=== PATIENT | male | born 1965 | race American Indian/Alaskan Native ===

== ENCOUNTER 2018-04-29 15:17 | Inpatient (IN) | payer SELFPAY ==
[2018-04-29 15:30] VITALS: O2SAT 99
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
--- NOTE | 2018-04-29 16:31 | RAD ---
Date of service: 04/29/2018 HISTORY: chest pain COMPARISON: None TECHNIQUE: Chest PA and lateral FINDINGS: LUNGS: Minor bibasilar atelectasis PLEURA: No significant pleural effusion identified. No pneumothorax apparent. CARDIOVASCULAR: Normal. OSSEOUS STRUCTURES: No significant abnormalities. VISUALIZED UPPER ABDOMEN: Normal. OTHER FINDINGS: None. IMPRESSION: Minor bibasilar atelectasis
[2018-04-29 17:10] LABS: BASO # 0.1 K/uL (0.0-0.2); BASO % 1.2 % (0.0-2.0); EOS # 0.2 K/uL (0.0-0.7); EOS % 2.1 % (0.0-4.0); HEMOGLOBIN 13.7 g/dL (12.0-18.0); LYMPH # 1.6 K/uL (1.0-4.3); LYMPH % 19.6 % (20.0-40.0); MEAN CORPUSCULAR HEMOGLOBIN 24.4 pg (27.0-31.0); MEAN CORPUSCULAR HGB CONC 32.1 g/dL (33.0-37.0); MEAN PLATELET VOLUME 10.1 fl (7.2-11.7); MONO # 0.7 K/uL (0.0-0.8); MONO % 8.5 % (0.0-10.0); NEUT # 5.6 K/uL (1.8-7.0); NEUT % 68.6 % (50.0-75.0); NRBC % 0.1 % (0.0-0.0); RBC 5.62 Mil/uL (4.40-5.90); RED CELL DISTRIBUTION WIDTH 17.3 % (11.5-14.5); WHITE BLOOD COUNT 8.1 K/uL (4.8-10.8)
[2018-04-29 17:19] LABS: ACETAMINOPHEN < 10.0 ug/ml (10.0-30.0); SALICYLATE < 1.0 mg/dl
[2018-04-29 17:26] LABS: INR 1.1; PROTHROMBIN TIME 12.1 Seconds (9.8-13.1)
[2018-04-29 17:29] LABS: PARTIAL THROMBOPLASTIN TIME 37.5 Seconds (25.6-37.1)
[2018-04-29 17:38] LABS: ALB/GLOB RATIO 1.3 (1.0-2.1); ALBUMIN 4.2 g/dL (3.5-5.0); ALT/SGPT 49 U/L (21-72); AST/SGOT 28 U/L (17-59); BLOOD UREA NITROGEN 21 mg/dl (9-20); CALCIUM 9.3 mg/dL (8.4-10.2); GFR NON-AFRICAN AMERICAN > 60
[2018-04-29] MEDS ORDERED: DiphenhydrAMINE 50 mg/ml Inj IM PRN (22:12)
[2018-04-29] MEDS ORDERED: Magnesium Hydroxide Susp 30 ml UD PO PRN (22:12)
[2018-04-29] MEDS ORDERED: Alum-Mag Hydrox-Simethicone Susp (30 mL) PO PRN (22:12)
--- NOTE | 2018-04-29 22:29 | PCM.BM ---
<Edwin Mcdermott - Last Filed: 04/29/18 22:26> Treatment Plan Problems - Problems identified on initial assessmt Medication nonadherence Date Initiated: 04/29/18 Time Initiated: : Assessment reference: NA Status: Active Priority: 1 Feeling of Worthlessness Date Initiated: 04/29/18 Time Initiated: 22:27 Assessment reference: NA Status: Active Priority: 2 Hoplessness/Helplessness Date Initiated: 04/29/18 Time Initiated: 22:29 Assessment reference: NA Status: Active Priority: 3 Altered Sleep Pattern Date Initiated: 04/29/18 Time Initiated: 22:29 Status: Active Priority: 4 Treatment assets and liabiliti Patient Assests: adapts well, cooperative, self-reliant, ADL independent, negotiates basic needs Patient Liabilities: poor support system - Milieu Protocol Maintain good personal hygiene: daily Encourage regular showers, daily Remind patient to perform daily oral care, daily Assist patient to perform ADL's Maintain personal safety: every shift Educate patient to report safety concerns to staff, every shift Monitor environment for contraband/sharps Medication safety: Monitor for expected outcome, potential side effects: every shift, Assess barriers to learning: every shift, Assess readiness for medication education: every shift <Ilene Paz - Last Filed: 04/30/18 11:21> - Diagnosis (1) Major depressive disorder Status: Acute Interventions: Medication management, Individual and group therapy, Psychoeducation 04/30/18 11:21 (2) Generalized anxiety disorder with panic attacks Status: Acute Interventions: Medication management, Individual and group therapy, Psychoeducation 04/30/18 11:21 <Anna Lopez - Last Filed: 05/04/18 14:39> Family Contact Family involvement: Patient does not wish Family/SO involvement - Goals for Treatment Patient goals for treatment: Pt to be encouraged to attend activity and clinical groups 3-5x per week to identify at least 2 contributing factors to depression and suicide attempt. Psycho-education to be provided to patient/family regarding benefits of medications and treatment adherence. Pt to be encouraged to participate in group milieu to develop effective coping skills to reduce depression and free of suicide ideation. Coordinate discharge resource needs by providing referral for psychiatric treatment follow up in the community. Discharge/Continuing Care - Education Needs Education Needs: Patient Medication, Patient Diagnosis/Disease Process, Patient Coping Skills, Patient Community resources, Patient Health Practices/Safety, Patient Personal Hygiene/Grooming, Patient Aftercare Safety Plan - Discharge Discharge Criteria: Tolerates medication w/o severe side effects, Free of Suicidal thoughts, Normal sleep pattern, Ability to care for self, Reduction of target symptoms Discharge to:: Home - Additional Comments 05/04/18 14:33 LATE ENTRY FROM 05/02/2018: Pt seen and discussed in team meeting. Reason for admission reviewed. Pt reported being referred to the ED by a "family friend" due to worsened depression and anxiety. Pt reported "the mornings are the worst, i wake up grouchy" when asked how he was feeling. Pt also reported that his anxiety "getting better." Pt denied active SI and HI at time of meeting. Pt refused for greeting card writer to speak with family or obtain collateral information, stating "I don't want them to know I'm here." Pt inquiring if he calls from the hospital telephone if it will show up on the caller ID. Pt presented with bright affect and dis not appear to be in any distress. Pt's social and emotional issues reviewed. Pt's medications reviewed and discussed. Tx plan reviewed: Q15 minutes; attend clinical and activity groups; medication management; and daily assessment by MD. SW to continue to follow case. SW to link pt to appropriate level of care post case. - Treatment Team Participation Discussed with Family/SO: No Was Patient/Family/SO present at Treatment Team Meeting: Yes
[2018-04-30 08:50] LABS: T4 7.57 ug/dl (5.5-11.0)
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
--- NOTE | 2018-04-30 11:00 | CARD ---
APPROVED REPORT Date of service: 04/29/2018 <Conclusion> Normal sinus rhythm Possible Left atrial enlargement Nonspecific ST abnormality Abnormal ECG
[2018-04-30] MEDS ORDERED: Naproxen 500 MG TAB PO PRN (11:01)
--- NOTE | 2018-04-30 13:47 | CP.PCM.CON ---
History of Present Illness - History of Present Illness History of Present Illness: Reason for consult: per hospital protocol HPI: 53M PMH HTN, gout, MDD, DERICK, multiple past psychiatric admissions, h/o suicide attempt is admitted to psych for worsening anxiety and suicide ideation. Patient's other chronic medical conditions stable at this time. HD stable, NAD. ROS: per HPI all other systems reviewed and negative. Past Patient History - Past Social History Smoking Status: Never Smoked - CARDIAC Hx Cardiac Disorders: No Hx Hypertension: Yes - PULMONARY Hx Tuberculosis: No - NEUROLOGICAL HX Cerebrovascular Accident: No Hx Seizures: No - HEMATOLOGICAL/ONCOLOGICAL Hx Cancer: No Hx Human Immunodeficiency Virus (HIV): No - MUSCULOSKELETAL/RHEUMATOLOGICAL Other/Comment: gout - GENITOURINARY/GYNECOLOGICAL Hx Sexually Transmitted Disorders: No - PSYCHIATRIC Hx Anxiety: Yes Hx Depression: Yes Hx Schizophrenia: Yes Hx Substance Use: No - SURGICAL HISTORY Hx Surgeries: No - ANESTHESIA Hx Anesthesia: No Meds Allergies/Adverse Reactions: Allergies Allergy/AdvReac Type Severity Reaction Status Date / Time No Known Allergies Allergy Verified 04/29/18 15:45 - Medications Medications: Current Medications Acetaminophen (Tylenol 325mg Tab) 650 mg PO Q4 PRN PRN Reason: for pain 4-7 Al Hydrox/Mg Hydrox/Simethicone (Maalox Plus 30 Ml) 30 ml PO Q4 PRN PRN Reason: Dyspepsia Allopurinol (Zyloprim) 300 mg PO DAILY [facility] Last Admin: 04/30/18 13:39 Dose: 300 mg Clonazepam (Klonopin) 2 mg PO Q12 [facility] Last Admin: 04/30/18 13:37 Dose: 2 mg Diphenhydramine HCl (Benadryl) 50 mg IM Q6 PRN PRN Reason: Extrapyramidal S/S Unable PO Diphenhydramine HCl (Benadryl) 50 mg PO Q6 PRN PRN Reason: Extrapyramidal Symptoms Diphenhydramine HCl (Benadryl) 50 mg PO HS PRN PRN Reason: Insomnia Gabapentin (Neurontin) 300 mg PO TID [facility] Last Admin: 04/30/18 13:38 Dose: 300 mg Haloperidol (Haldol) 5 mg PO Q4 PRN PRN Reason: Agitation Haloperidol Lactate (Haldol) 5 mg IM Q4 PRN PRN Reason: Agitation, Unable to Take PO Ibuprofen (Motrin Tab) 800 mg PO Q8 PRN PRN Reason: Pain, moderate (4-7) Last Admin: 04/30/18 13:40 Dose: 800 mg Lorazepam (Ativan) 1 mg IM Q8 PRN PRN Reason: Anxiety/Agitation,Unable PO Lorazepam (Ativan) 1 mg PO Q8 PRN PRN Reason: Anxiety/Agitation Last Admin: 04/30/18 09:35 Dose: 1 mg Magnesium Hydroxide (Milk Of Magnesia) 30 ml PO HS PRN PRN Reason: Constipation Mirtazapine (Remeron) 30 mg PO HS [facility] Physical Exam - Constitutional Appears: Well, Non-toxic - Head Exam Head Exam: ATRAUMATIC, NORMAL INSPECTION, NORMOCEPHALIC - Eye Exam Eye Exam: EOMI, Normal appearance, PERRL Pupil Exam: NORMAL ACCOMODATION, PERRL - ENT Exam ENT Exam: Mucous Membranes Moist, Normal Exam - Neck Exam Neck exam: Positive for: Full Rom, Normal Inspection - Respiratory Exam Respiratory Exam: Clear to Auscultation Bilateral, NORMAL BREATHING PATTERN - Cardiovascular Exam Cardiovascular Exam: REGULAR RHYTHM, RRR, +S1, +S2 - GI/Abdominal Exam GI & Abdominal Exam: Normal Bowel Sounds, Soft. absent: Tenderness - Extremities Exam Extremities exam: Positive for: normal capillary refill, normal inspection, pedal pulses present - Back Exam Back exam: NORMAL INSPECTION. absent: paraspinal tenderness - Neurological Exam Neurological exam: Alert, Reflexes Normal - Psychiatric Exam Psychiatric exam: Normal Affect, Normal Mood - Skin Skin Exam: Dry, Warm Results - Vital Signs Recent Vital Signs: Last Vital Signs Temp 97.5 F L 04/30/18 06:00 Pulse 62 04/30/18 06:00 Resp 18 04/30/18 06:00 BP 165/90 H 04/30/18 06:00 Pulse Ox 99 04/29/18 20:19 - Labs Result Diagrams: 04/29/18 17:06 04/29/18 17:06 Labs: Laboratory Results - last 24 hr 04/29/18 04/29/18 04/29/18 17:06 17:06 17:06 WBC 8.1 RBC 5.62 Hgb 13.7 Hct 42.7 MCV 76.0 L MCH 24.4 L MCHC 32.1 L RDW 17.3 H Plt Count 202 MPV 10.1 Neut % (Auto) 68.6 Lymph % (Auto) 19.6 L [place] % (Auto) 8.5 Eos % (Auto) 2.1 Baso % (Auto) 1.2 Neut # (Auto) 5.6 Lymph # (Auto) 1.6 [place] # (Auto) 0.7 Eos # (Auto) 0.2 Baso # (Auto) 0.1 PT INR APTT Sodium 145 Potassium 3.6 Chloride 111 H Carbon Dioxide 28 Anion Gap 10 BUN 21 H Creatinine 1.1 Est GFR ( Amer) > 60 Est GFR (Non-Af Amer) > 60 Random Glucose 88 Calcium 9.3 Phosphorus 3.3 Magnesium 2.2 Total Bilirubin 0.5 AST 28 ALT 49 Alkaline Phosphatase 73 Troponin I < 0.0120 NT-Pro-B Natriuret Pep 99.0 Total Protein 7.4 Albumin 4.2 Globulin 3.3 Albumin/Globulin Ratio 1.3 Triglycerides Cholesterol LDL Cholesterol Direct HDL Cholesterol Thyroxine (T4) TSH 3rd Generation 1.59 Salicylates < 1.0 Acetaminophen < 10.0 L Alcohol, Quantitative < 10 04/29/18 04/30/18 17:06 06:30 WBC RBC Hgb Hct MCV MCH MCHC RDW Plt Count MPV Neut % (Auto) Lymph % (Auto) [place] % (Auto) Eos % (Auto) Baso % (Auto) Neut # (Auto) Lymph # (Auto) [place] # (Auto) Eos # (Auto) Baso # (Auto) PT 12.1 INR 1.1 APTT 37.5 H Sodium Potassium Chloride Carbon Dioxide Anion Gap BUN Creatinine Est GFR ( Amer) Est GFR (Non-Af Amer) Random Glucose Calcium Phosphorus Magnesium Total Bilirubin AST ALT Alkaline Phosphatase Troponin I NT-Pro-B Natriuret Pep Total Protein Albumin Globulin Albumin/Globulin Ratio Triglycerides 112 Cholesterol 226 H LDL Cholesterol Direct 149 H HDL Cholesterol 40 Thyroxine (T4) 7.57 TSH 3rd Generation 0.82 Salicylates Acetaminophen Alcohol, Quantitative Assessment & Plan - Assessment and Plan (Free Text) Plan: 53M PMH HTN, gout, MDD, DERICK, multiple past psychiatric admissions, h/o suicide attempt is admitted to psych for worsening anxiety and suicide ideation. Patient 's other chronic medical conditions stable at this time. HD stable, NAD. HTN continue HCTZ, procardia, lisinopril GOUT continue Allopurinol MDD DERICK management per psych
[2018-04-30] MEDS: NIFEdipine 30 mg ER Tab PO SCH (14:59)
[2018-04-30] MEDS: Bacitracin OINT 15GM TOP SCH (16:44)
[2018-04-30] MEDS: guaiFENesin 100 mg/5 ml Syrup UD PO PRN (16:46)
[2018-05-01] MEDS: NIFEdipine 30 mg ER Tab PO SCH (08:32)
[2018-05-01] MEDS: guaiFENesin 100 mg/5 ml Syrup UD PO PRN ×2 (08:35→20:26)
--- NOTE | 2018-05-01 09:45 | PCM.PYCHPN ---
Psychiatric Progress Note - Psychiatric Progress Note Patient seen today, length of contact: Pt evaluated, case discussed w/ staff, chart reviewed Patient Chief Complaint: "I was thinking of killing myself." Problems Identified/Issues Discussed: Patient reports that he feels depressed and anxious. He denies feeling acutely suicidal. NO AH/VH/paranoia/delusions. He reports poor sleep due to anxiety. No adverse effects to medications reported. Medication Change: No Medical Record Reviewed: Yes Consults ordered or reviewed: Medicine consult Mental Status Examination - Cognitive Function Orientation: Person, Place, Situation, Time Memory: Intact Attention: WNL Concentration: WNL Association: [facility] Fund of Knowledge: [facility] Decription of patient's judgement and insights: Improving I/J - Mood Mood: Depressed, Anxious - Affect Affect: Constricted, Depressed - Speech Speech: Appropriate - Formal Thought Process Formal Thought Process: No Impairment Psychotic Thoughts and Behaviors: NO AH/VH/paranoia/delusions - Suicidal Ideation Suicidal Ideation: No - Homicidal Ideation Homicidal Ideation: No Goal/Treatment Plan - Goal/Treatment Plan Need for Continued Stay: Remain at risks for inpatient hospitalization, Severe depression anxiety, Discharge may exacerbated symptoms Progress Toward Problem(s) and Goals/Treatment Plan: Major Depressive Disorder; Generalized Anxiety Disorder w/ Panic Attacks -Individual and group therapy -Psychoeducation -Continue Remeron 30 mg PO HS -Continue Neurontin and Klonopin -Medicine consult -Disposition planning Estimated Date of D/C: 05/06/18
[2018-05-01] MEDS: Bacitracin OINT 15GM TOP SCH ×3 (13:03→16:35)
--- NOTE | 2018-05-01 13:40 | CP.PCM.CON ---
History of Present Illness - History of Present Illness History of Present Illness: Podiatry Consult Note- Dr. James 53M with PMHx of HTN, gout, MDD, DERICK seen and evaluated at bedside for right foot pain. Patient reports that he banged his toe a few weeks ago against the bed, went to the ED one week ago because of persistent pain to the 4th digit right foot. Patient was told he has a fracture. Was told to renetta splint and ambulating with stiff shoes. Reports has not ambulated in stiff shoes. Reports pain to the right 4th digit, describes the pain as a throbbing pain. Reports swelling which has improved. Denies numbness and tingling. Patient also complaints of history of fungus feet and would like treatment. Denies N/V/SOB/CP /chills or fever. PMH: HTN, gout, MDD, DERICK PSH: denies ALL: denies MEDS: see MAR list FH: denies SH: reports socially drinking, denies smoking or illicit drug use Past Patient History - Past Social History Smoking Status: Never Smoked - CARDIAC Hx Cardiac Disorders: No Hx Hypertension: Yes - PULMONARY Hx Tuberculosis: No - NEUROLOGICAL HX Cerebrovascular Accident: No Hx Seizures: No - HEMATOLOGICAL/ONCOLOGICAL Hx Cancer: No Hx Human Immunodeficiency Virus (HIV): No - MUSCULOSKELETAL/RHEUMATOLOGICAL Other/Comment: gout - GENITOURINARY/GYNECOLOGICAL Hx Sexually Transmitted Disorders: No - PSYCHIATRIC Hx Anxiety: Yes Hx Depression: Yes Hx Schizophrenia: Yes Hx Substance Use: No - SURGICAL HISTORY Hx Surgeries: No - ANESTHESIA Hx Anesthesia: No Meds Allergies/Adverse Reactions: Allergies Allergy/AdvReac Type Severity Reaction Status Date / Time No Known Allergies Allergy Verified 04/29/18 15:45 - Medications Medications: Current Medications Acetaminophen (Tylenol 325mg Tab) 650 mg PO Q4 PRN PRN Reason: for pain 4-7 Al Hydrox/Mg Hydrox/Simethicone (Maalox Plus 30 Ml) 30 ml PO Q4 PRN PRN Reason: Dyspepsia Allopurinol (Zyloprim) 300 mg PO DAILY [facility] Last Admin: 05/01/18 08:33 Dose: 300 mg Bacitracin (Bacitracin Oint) 1 applic TOP BID [facility] Last Admin: 05/01/18 13:18 Dose: 1 applic Clonazepam (Klonopin) 2 mg PO Q12 [facility] Last Admin: 05/01/18 08:31 Dose: 2 mg Diphenhydramine HCl (Benadryl) 50 mg IM Q6 PRN PRN Reason: Extrapyramidal S/S Unable PO Diphenhydramine HCl (Benadryl) 50 mg PO Q6 PRN PRN Reason: Extrapyramidal Symptoms Diphenhydramine HCl (Benadryl) 50 mg PO HS PRN PRN Reason: Insomnia Last Admin: 04/30/18 21:10 Dose: 50 mg Gabapentin (Neurontin) 300 mg PO TID [facility] Last Admin: 05/01/18 13:17 Dose: 300 mg Guaifenesin (Robitussin) 100 mg PO Q6 PRN PRN Reason: Cough Last Admin: 05/01/18 08:35 Dose: 100 mg Haloperidol (Haldol) 5 mg PO Q4 PRN PRN Reason: Agitation Haloperidol Lactate (Haldol) 5 mg IM Q4 PRN PRN Reason: Agitation, Unable to Take PO Hydrochlorothiazide (Microzide) 12.5 mg PO DAILY [facility] Last Admin: 05/01/18 08:33 Dose: 12.5 mg Ibuprofen (Motrin Tab) 800 mg PO Q8 PRN PRN Reason: Pain, moderate (4-7) Last Admin: 05/01/18 08:33 Dose: 800 mg Lisinopril (Zestril) 40 mg PO DAILY [facility] Last Admin: 05/01/18 08:31 Dose: 40 mg Lorazepam (Ativan) 1 mg IM Q8 PRN PRN Reason: Anxiety/Agitation,Unable PO Lorazepam (Ativan) 1 mg PO Q8 PRN PRN Reason: Anxiety/Agitation Last Admin: 04/30/18 09:35 Dose: 1 mg Magnesium Hydroxide (Milk Of Magnesia) 30 ml PO HS PRN PRN Reason: Constipation Mirtazapine (Remeron) 30 mg PO HS [facility] Last Admin: 04/30/18 21:07 Dose: 30 mg Nifedipine (Procardia Xl) 30 mg PO DAILY [facility] Last Admin: 05/01/18 08:32 Dose: 30 mg Physical Exam - Constitutional Appears: Well, Non-toxic, No Acute Distress - Extremities Exam Extremities exam: Negative for: calf tenderness Additional comments: VASC: DP and PT 2/4 bilaterally, CFT < 3 seconds x 10 digits, temperature gradient WNL proximal knees to distal toes, very mild localized edema forefoot ORTHO: minimal pain to palpation to the entire 4th digit, no pain with passive MPJ and PIPJ ROM to digits 1-5, AROM 1-5 present, MM is 5/5 in all four compartments: dorsiflexion, plantar, inversion, eversion NEURO: gross and protective sensation intact DERM: no open lesions, very tiny circular hyperkeratotic lesions in moccasin type distribution to the bilaterally feet, no interdigital maceration noted, no erythema, no streaking, no clinical signs of infection, no ecchymosis noted, no digital deformities or gross displacement noted to the digits - Neurological Exam Neurological exam: Alert, Oriented x3 - Psychiatric Exam Psychiatric exam: Normal Mood Results - Vital Signs Recent Vital Signs: Last Vital Signs Temp 97.3 F L 05/01/18 06:00 Pulse 87 05/01/18 08:32 Resp 18 05/01/18 06:00 BP 121/82 05/01/18 08:32 Pulse Ox 99 04/29/18 20:19 - Labs Result Diagrams: 04/29/18 17:06 04/29/18 17:06 Labs: Laboratory Results - last 24 hr 04/30/18 04/30/18 06:30 06:30 Hemoglobin A1c 5.6 RPR Nonreactive Assessment & Plan - Assessment and Plan (Free Text) Assessment: 53M with PMHx of HTN, gout, MDD, DERICK seen and evaluated at bedside 1) right 4th proximal phalanx fracture, nondisplaced 2) clinical examination consistent with tinea pedis Plan: Patient seen and evaluated Discussed plan in detail with attending X-rays ordered and reviewed- oblique nondisplaced fracture of proximal phalanx Renetta splint 3rd and 4th digit with papertape Patient to WBAT to heels in surgical shoe May take X-rays every week or every other week to assess fracture healing Pain relievers as need for pain RICE protocol if swelling Ordered Clotrimazole lotion, to be applied BID daily for bilaterally tinea pedis treatment Educated on proper foot hygiene care Educated patient to discharge putting lotion between interdigits to avoid maceration, skin breakdown and potential portals of infection. Patient demonstrate understanding Patient to follow up with Dr. James upon discharge in 1 week Please call for an appointment Thank you for allowing us to participate in patient's care
--- NOTE | 2018-05-01 18:00 | RAD ---
Date of service: 05/01/2018 PROCEDURE: Right Foot Radiographs. HISTORY: right foot injury COMPARISON: None. FINDINGS: BONES: Fourth proximal phalanx fracture, nondisplaced. JOINTS: Normal. SOFT TISSUES: Normal. OTHER FINDINGS: None. IMPRESSION: Fourth proximal phalanx fracture, nondisplaced.
[2018-05-02] MEDS: Bacitracin OINT 15GM TOP SCH ×2 (08:23→17:25)
[2018-05-02] MEDS: NIFEdipine 30 mg ER Tab PO SCH (08:25)
--- NOTE | 2018-05-02 09:47 | PCM.PYCHPN ---
Psychiatric Progress Note - Psychiatric Progress Note Patient seen today, length of contact: Pt evaluated, case discussed w/ staff, chart reviewed Patient Chief Complaint: "I was thinking of killing myself." Problems Identified/Issues Discussed: Patient reports that he feels depressed and anxious w/ feelings of hopelessness. NO AH/VH/paranoia/delusions/SI/HI. He reports poor sleep. No adverse effects to medications reported. Medication Change: No Medical Record Reviewed: Yes Consults ordered or reviewed: Medicine consult, Podiatry consult Mental Status Examination - Cognitive Function Orientation: Person, Place, Situation, Time Memory: Intact Attention: WNL Concentration: WNL Association: [facility] Fund of Knowledge: [facility] Decription of patient's judgement and insights: Improving I/J - Mood Mood: Depressed, Anxious - Affect Affect: Constricted, Depressed - Speech Speech: Appropriate - Formal Thought Process Formal Thought Process: No Impairment Psychotic Thoughts and Behaviors: NO AH/VH/paranoia/delusions - Suicidal Ideation Suicidal Ideation: No - Homicidal Ideation Homicidal Ideation: No Goal/Treatment Plan - Goal/Treatment Plan Need for Continued Stay: Remain at risks for inpatient hospitalization, Severe depression anxiety, Discharge may exacerbated symptoms Progress Toward Problem(s) and Goals/Treatment Plan: Major Depressive Disorder; Generalized Anxiety Disorder w/ Panic Attacks -Individual and group therapy -Psychoeducation -Continue Remeron 30 mg PO HS -Continue Neurontin and Klonopin -Medicine consult -Disposition planning Estimated Date of D/C: 05/06/18
[2018-05-02] MEDS: guaiFENesin 100 mg/5 ml Syrup UD PO PRN ×2 (09:53→17:27)
[2018-05-03] MEDS: guaiFENesin 100 mg/5 ml Syrup UD PO PRN ×2 (00:57→14:56)
--- NOTE | 2018-05-03 09:22 | PCM.PYCHPN ---
Psychiatric Progress Note - Psychiatric Progress Note Patient seen today, length of contact: Pt evaluated, case discussed w/ staff, chart reviewed Patient Chief Complaint: "I'm depressed." Problems Identified/Issues Discussed: Patient reports that he continues to feel depressed and anxious. He is worried that he will start to have panic attacks again. NO AH/VH/paranoia/delusions/SI/HI. He reports poor sleep and appetite disturbances. No adverse effects to medications reported. Medication Change: No Medical Record Reviewed: Yes Consults ordered or reviewed: Medicine consult, Podiatry consult Mental Status Examination - Cognitive Function Orientation: Person, Place, Situation, Time Memory: Intact Attention: WNL Concentration: WNL Association: [facility] Fund of Knowledge: [facility] Decription of patient's judgement and insights: Improving I/J - Mood Mood: Depressed, Anxious - Affect Affect: Constricted, Depressed - Speech Speech: Appropriate - Formal Thought Process Formal Thought Process: No Impairment Psychotic Thoughts and Behaviors: NO AH/VH/paranoia/delusions - Suicidal Ideation Suicidal Ideation: No - Homicidal Ideation Homicidal Ideation: No Goal/Treatment Plan - Goal/Treatment Plan Need for Continued Stay: Remain at risks for inpatient hospitalization, Severe depression anxiety, Discharge may exacerbated symptoms Progress Toward Problem(s) and Goals/Treatment Plan: Major Depressive Disorder; Generalized Anxiety Disorder w/ Panic Attacks -Individual and group therapy -Psychoeducation -Continue Remeron 30 mg PO HS -Continue Neurontin and Klonopin -Medicine consult -Disposition planning Estimated Date of D/C: 05/06/18
[2018-05-03] MEDS: Bacitracin OINT 15GM TOP SCH ×2 (14:57→16:39)
[2018-05-03] MEDS: NIFEdipine 30 mg ER Tab PO SCH (15:02)
--- NOTE | 2018-05-04 09:00 | PCM.PYCHPN ---
Psychiatric Progress Note - Psychiatric Progress Note Patient seen today, length of contact: Pt evaluated, case discussed w/ staff, chart reviewed Patient Chief Complaint: "I'm anxious." Problems Identified/Issues Discussed: Patient reports that he continues to feel anxious and depressed. We discussed coping strategies to deal with his chronic anxiety and panic attacks and discussed the importance of compliance w/ treatment and medications. He continues to report poor sleep at night. No AH/VH/SI/HI. No adverse effects to medications reported. Medication Change: No Medical Record Reviewed: Yes Consults ordered or reviewed: Medicine consult, Podiatry consult Mental Status Examination - Cognitive Function Orientation: Person, Place, Situation, Time Memory: Intact Attention: WNL Concentration: WNL Association: [facility] Fund of Knowledge: [facility] Decription of patient's judgement and insights: Improving I/J - Mood Mood: Anxious - Affect Affect: Constricted - Speech Speech: Appropriate - Formal Thought Process Formal Thought Process: No Impairment Psychotic Thoughts and Behaviors: NO AH/VH/paranoia/delusions - Suicidal Ideation Suicidal Ideation: No - Homicidal Ideation Homicidal Ideation: No Goal/Treatment Plan - Goal/Treatment Plan Need for Continued Stay: Remain at risks for inpatient hospitalization, Severe depression anxiety, Discharge may exacerbated symptoms Progress Toward Problem(s) and Goals/Treatment Plan: Major Depressive Disorder; Generalized Anxiety Disorder w/ Panic Attacks -Individual and group therapy -Psychoeducation -Continue Remeron 30 mg PO HS -Continue Neurontin and Klonopin -Medicine consult -Disposition planning Estimated Date of D/C: 05/06/18
[2018-05-04] MEDS: guaiFENesin 100 mg/5 ml Syrup UD PO PRN ×2 (09:09→21:06)
[2018-05-04] MEDS: NIFEdipine 30 mg ER Tab PO SCH (09:09)
[2018-05-04] MEDS: Bacitracin OINT 15GM TOP SCH ×2 (09:45→17:32)
[2018-05-05 06:23] VITALS: BP 156/90; PULSE 90; RESP 18; TEMP 97.2
--- NOTE | 2018-05-05 08:28 | PCM.PYCHDC ---
Mental Status Examination - Mental Status Examination Orientation: Person, Place, Situation, Time Memory: Intact Mood: Neutral Affect: Broad Speech: Appropriate Attention: WNL Concentration: WNL Association: [facility] Fund of Knowledge: W[facility] Formal Thought Process: No Impairment Description of patient's judgement and insight: Fair I/J Psychotic Thoughts and Behaviors: NO AH/VH/paranoia/delusions Suicidal Ideation: No Current Homicidal Ideation?: No Discharge Summary - Discharge Note Reason for Hospitalization: HPI: 53 yo male w/ h/o MDD and DERICK w/ panic attacks, presents w/ worsening depression, low mood, poor sleep/appetite, low energy, poor concentration, worsening anxiety and increased frequency of panic attacks and suicidal ideation to shoot himself with a gun. He reports that he was taking Remeron and Klonopin, but ran out of medications 3 days ago. NO AH/VH/paranoia/delusions. PPHx: 6 psychiatric hospitalizations for depression and anxiety, first in 1993. H/o suicide attempt by Andrey Dave in 2006. Current medications: Klonopin 2 mg Q12; Neurontin 300 mg PO TID and Remeron 15 mg PO HS. PMHx: HTN, Gout ALL: NKDA SHx: Works in a storage center; denies drugs/etoh/cig use FHx: Mother committed suicide Consultations:: List each consultation separately and include: 1. Reason for request. 2. Findings. 3. Follow-up Consultations: Medicine consult, Podiatry consult Summary of Hospital Course include:: 1. Description of specific treatment plan utilized for patients during their course of treatmen. 2. Summarize the time- course for resolution of acute symptoms and/or regressed behaviors. 3. Describe issues identified and worked on during hospitalization. 4. Describe medication utilized. 5. Describe medical problems identified and treated. 6. Reassessment of suicide risk Summary of Hospital Course: Patient was admitted to the psychiatry unit. Individual and group therapy were provided. Patient was stabilized on Remeron and Klonopin. Psychoeducation provided on the importance of compliance with treatment and medications. He denies acute AH/VH/SI/HI. He is psychiatrically stable at this time for discharge w/ outpatient psychiatric follow-up. - Diagnosis (1) Major depressive disorder Current Visit: Yes Status: Chronic (2) Generalized anxiety disorder with panic attacks Current Visit: Yes Status: Chronic - Final Diagnosis (DSM 5) Condition upon Discharge: STABLE DSM 5: Major Depressive Disorder; Generalized Anxiety Disorder Disposition: HOME/ ROUTINE Follow-up Treatment Plan: Major Depressive Disorder; Generalized Anxiety Disorder w/ Panic Attacks -Continue Remeron 30 mg PO HS -Continue Klonopin 2 mg PO Q12 -Continue Neurontin 300 mg PO TID -Medicine consult -Discharge w/ outpatient follow-up Prescriptions/Medication Reconciliation: Bacitracin OINT 1 applic TOP BID #1 tube Clonazepam [Klonopin] 2 mg PO Q12 #60 tablet Clotrimazole 1% Cream [Lotrimin 1% CREAM] 1 applic TOP BID #1 tube Gabapentin [Neurontin] 300 mg PO TID #90 cap hydroCHLOROthiazide [Microzide] 12.5 mg PO DAILY #30 cap Lisinopril [Zestril] 40 mg PO DAILY #30 tablet Mirtazapine [Remeron] 30 mg PO HS #30 tab NIFEdipine ER [Procardia XL] 30 mg PO DAILY #30 ter - Smoking Cessation Smoking Cessation Medication prescribed: No Reason for not providing: Not indicated - Antipsychotic Medications Pt discharged on 2 or more routine antipsychotic medications: No
[2018-05-05] MEDS: NIFEdipine 30 mg ER Tab PO SCH (08:32)
[2018-05-05] MEDS: Bacitracin OINT 15GM TOP SCH (08:37)
== END 2018-05-05 09:55 | disposition home or self-care (01) | DRG 881 ==
LOC: H.ER 15:17 → H.ERHOLD 17:04 → H.STEP 21:58
PROVIDERS: ADMIT Psychiatry & Neurology Psychiatry; ATTEND Psychiatry & Neurology Psychiatry
PROC: GZHZZZZ Group Psychotherapy (ICD-10-PCS; principal; 2018-04-29)
PROC: GZ58ZZZ Individual Psychotherapy, Cognitive-Behavioral (ICD-10-PCS; 2018-04-29)
DX: F32.9 Major depressive disorder, single episode, unspecified (principal); R45.851 Suicidal ideations; F41.0 Panic disorder [episodic paroxysmal anxiety]; F41.1 Generalized anxiety disorder; I10 Essential (primary) hypertension; Z91.14 Patient's other noncompliance with medication regimen; B35.3 Tinea pedis; M10.9 Gout, unspecified; S92.514D Nondisplaced fracture of proximal phalanx of right lesser toe(s), subsequent encounter for fracture with routine healing; X58.XXXD Exposure to other specified factors, subsequent encounter